=== PATIENT | male | born 1995 | race American Indian/Alaskan Native ===

== ENCOUNTER 2016-02-11 16:45 | Emergency (ER) | payer SELFPAY ==
[2016-02-11 17:04] VITALS: BP 116/73
--- NOTE | 2016-02-11 22:04 | Emergency Department Report ---
ED ENT HPI - General Chief complaint: Earache Stated complaint: R-EAR PAIN/COLD Time Seen by Provider: 02/11/16 22:00 Source: patient Mode of arrival: Ambulatory Limitations: No Limitations - History of Present Illness Initial comments: Patient reports sore throat that started 3 days ago, nasal congestion that started 2 days ago and right earache that started this morning. MD complaint: sore throat, ear pain (right) Onset/Timin -: days(s) Location: R ear, throat Severity: moderate Severity scale (0 -10): 7 Quality: aching Consistency: constant Improves with: none Worsens with: swallowing Context-Epistaxis: other (none) Context- Dental: other (none) Associated Symptoms: pain with swallowing, sore throat, other (right earache). denies: fever, cough, gum swelling, toothache, tinnitus, hearing loss - Related Data Previous Rx's Medication Instructions Recorded Last Taken Type Amoxicillin [Amoxicillin TAB] 875 mg PO BID #20 tablet 02/11/16 Unknown Rx Cetirizine HCl [ZyrTEC] 10 mg PO DAILY #30 capsule 02/11/16 Unknown Rx Fluticasone [Flonase] 1 spray NS QDAY #1 bottle 02/11/16 Unknown Rx ED Dental HPI - General Chief complaint: Earache Stated complaint: R-EAR PAIN/COLD Source: patient Mode of arrival: Ambulatory Limitations: No Limitations - Related Data Previous Rx's Medication Instructions Recorded Last Taken Type Amoxicillin [Amoxicillin TAB] 875 mg PO BID #20 tablet 02/11/16 Unknown Rx Cetirizine HCl [ZyrTEC] 10 mg PO DAILY #30 capsule 02/11/16 Unknown Rx Fluticasone [Flonase] 1 spray NS QDAY #1 bottle 02/11/16 Unknown Rx ED Review of Systems ROS: Stated complaint: R-EAR PAIN/COLD Other details as noted in HPI Constitutional: denies: chills, diaphoresis, fever, malaise, weakness Eyes: denies: eye pain, eye discharge, vision change ENT: ear pain (right), throat pain, congestion (nasal). denies: dental pain, hearing loss, epistaxis Respiratory: cough (non-productive). denies: orthopnea, shortness of breath, SOB with exertion, SOB at rest, stridor, wheezing Cardiovascular: denies: chest pain, palpitations, dyspnea on exertion, orthopnea , edema, syncope, paroxysmal nocturnal dyspnea Skin: denies: rash, lesions, change in color, change in hair/nails, pruritus ED Past Medical Hx - Past Medical History Additional medical history: IBS - Surgical History Past Surgical History?: No - Social History Smoking Status: Never Smoker Substance Use Type: None - Medications Home Medications: Home Medications Medication Instructions Recorded Confirmed Last Taken Type Amoxicillin [Amoxicillin TAB] 875 mg PO BID #20 tablet 02/11/16 Unknown Rx Cetirizine HCl [ZyrTEC] 10 mg PO DAILY #30 capsule 02/11/16 Unknown Rx Fluticasone [Flonase] 1 spray NS QDAY #1 bottle 02/11/16 Unknown Rx ED Physical Exam - General Limitations: No Limitations General appearance: alert, in no apparent distress - Head Head exam: Present: atraumatic, normocephalic, normal inspection - Eye Eye exam: Present: normal appearance, PERRL, EOMI Pupils: Present: normal accommodation - ENT ENT exam: Present: mucous membranes moist, normal external ear exam, other ( swelling to nasal turbinates). Absent: normal orophraynx, mucous membranes dry , TM's normal bilaterally - Expanded ENT Exam Expanded TM/Canal exam: Erythema: Right TM Mouth exam: Present: normal external inspection, tongue normal. Absent: drooling, trismus, muffled voice, tongue elevation, laceration Teeth exam: Present: normal inspection. Absent: dental caries, fractured tooth #, dental tenderness #, gingival enlargement Throat exam: Positive: normal inspection. Negative: tonsillar erythema, tonsillomegaly, tonsillar exudate, R peritonsillar mass, L peritonsillar mass - Neck Neck exam: Present: normal inspection, full ROM, other (tenderness to palpation right preauricular lymph node). Absent: lymphadenopathy, thyromegaly - Respiratory Respiratory exam: Present: normal lung sounds bilaterally. Absent: respiratory distress, wheezes, rales, rhonchi, stridor, chest wall tenderness, accessory muscle use, decreased breath sounds, prolonged expiratory - Cardiovascular Cardiovascular Exam: Present: regular rate, normal rhythm, normal heart sounds. Absent: systolic murmur, diastolic murmur, rubs, gallop, clicks, JVD, S3, S4 - Neurological Exam Neurological exam: Present: alert, oriented X3, CN II-XII intact, normal gait, reflexes normal. Absent: motor sensory deficit - Skin Skin exam: Present: warm, dry, intact, normal color. Absent: rash ED Course Vital Signs 02/11/16 17:00 Temperature 98.1 F Pulse Rate 98 H Respiratory 18 Rate Blood Pressure 116/73 O2 Sat by Pulse 98 Oximetry ED Medical Decision Making - Lab Data Vital Signs 02/11/16 17:00 Temperature 98.1 F Pulse Rate 98 H Respiratory 18 Rate Blood Pressure 116/73 O2 Sat by Pulse 98 Oximetry - Medical Decision Making During the course of ED, all other systems unremarkable except for documentation in HPI. Patient was sent home with prescriptions for Flonase, Zyrtec and Amoxicillin, instructed to follow with selective referrals given at discharge, he verbalize understanding - Differential Diagnosis Right otitis media, Rhinitis, Upper respiratory infection Critical care attestation.: If time is entered above; I have spent that time in minutes in the direct care of this critically ill patient, excluding procedure time. ED Disposition Clinical Impression: Right otitis media Qualifiers: Otitis media type: unspecified Chronicity: unspecified Qualified Code(s): H66.91 - Otitis media, unspecified, right ear Rhinitis Qualifiers: Rhinitis type: allergic Allergic rhinitis seasonality: seasonal Allergic rhinitis trigger: unspecified Qualified Code(s): J30.2 - Other seasonal allergic rhinitis Disposition: DISCHARGED TO HOME OR SELFCARE Is pt being admited?: No Does the pt Need Aspirin: No Condition: Stable Instructions: Otitis Media (ED), Allergic Rhinitis (ED) Additional Instructions: Take medication as directed. Follow-up with the selective referrals given at discharge Prescriptions: Amoxicillin [Amoxicillin TAB] 875 mg PO BID #20 tablet Fluticasone [Flonase] 1 spray NS QDAY #1 bottle Cetirizine HCl [ZyrTEC] 10 mg PO DAILY #30 capsule Referrals: PRIMARY CARE,MD [Primary Care Provider] - 3-5 Days [facility] [Outside] - 3-5 Days Forms: Work/School Release Form(ED) Time of Disposition: 22:10
== END 2016-02-11 22:25 | disposition home or self-care (01) ==
LOC: ED 16:45
DX: H66.91 Otitis media, unspecified, right ear (principal); J30.2 Other seasonal allergic rhinitis
CPT/HCPCS: 99282